=== PATIENT | female | born 1985 | race Caucasian/White ===

== ENCOUNTER → 2017-12-20 | Outpatient (CLI) | payer MEDICAID ==
--- NOTE | 2017-12-20 16:10 | XR ---
EXAMINATION TYPE: XR chest 2V DATE OF EXAM: 12/20/2017 COMPARISON: None HISTORY: 32-year-old female painful cough, other forms of angina pectoris TECHNIQUE: Frontal and lateral views FINDINGS: The cardiomediastinal silhouette, aorta, and pulmonary vasculature are within normal limits. Lungs an d pleural spaces are clear. IMPRESSION: No acute cardiopulmonary process.
== END | disposition home or self-care (01) ==
LOC: RADXRMAIN 15:40
PROVIDERS: ATTEND Family Medicine
DX: I20.8 Other forms of angina pectoris (principal)
CPT/HCPCS: 71046

== ENCOUNTER → 2023-05-31 | Outpatient (CLI) | payer OTHER ==
--- NOTE | 2023-05-31 11:15 | XR ---
EXAMINATION TYPE: XR shoulder complete RT DATE OF EXAM: 05/31/2023 CLINICAL HISTORY: pain TECHNIQUE: Three views of the right shoulder are obtained. COMPARISON: None FINDINGS: There is no acute fracture/dislocation evident. The acromioclavicular and glenohumeral marium int spaces appear within normal limits. The visualized ribs are intact and unremarkable. IMPRESSION: 1. There is no acute fracture or dislocation. ICD 10 NO FRACTURE, INITIAL EVALUATION
== END | disposition home or self-care (01) ==
LOC: RADXRMAIN 10:25
PROVIDERS: ATTEND Emergency Medicine
DX: S46.911A Strain of unspecified muscle, fascia and tendon at shoulder and upper arm level, right arm, initial encounter (principal)

== ENCOUNTER → 2023-06-15 | Outpatient (CLI) | payer OTHER ==
--- NOTE | 2023-06-16 22:20 | MR ---
EXAMINATION TYPE: MR shoulder RT wo con DATE OF EXAM: 06/15/2023 COMPARISON: Right shoulder x-ray May 31, 2023 HISTORY: Rt shoulder pain since April 2023, lifting injury TECHNIQUE: Multiplanar, multisequence imaging of the right shoulder is performed without contrast. FINDINGS: Rotator Cuff: Intact supraspinatus and infraspinatus tendons. Intact subscapularis tendon. Rotator cu ff muscle bulk is preserved. Acromioclavicular Joint: Mild narrowing. No significant spurring. Mild to moderate capsular hypertrop hy. Underlying fat plane is preserved. Glenohumeral Joint: Small joint effusion is favored physiologic. No significant spurring. Labrum: The labrum appears grossly intact given limitation of non-arthrogram study. Biceps Tendon: The long head of biceps is in normal location within bicipital groove. Bone marrow signal: No focal abnormal marrow signal is appreciated. Other: No additional significant abnormality is appreciated. IMPRESSION: No rotator cuff or labral tear is seen.
== END | disposition home or self-care (01) ==
LOC: RADMRIMAIN 12:49
PROVIDERS: ATTEND Emergency Medicine
DX: S46.911D Strain of unspecified muscle, fascia and tendon at shoulder and upper arm level, right arm, subsequent encounter (principal); X58.XXXD Exposure to other specified factors, subsequent encounter

== ENCOUNTER → 2023-10-21 | Day surgery (SDC) | payer OTHER ==
[2023-10-19 11:20] VITALS: BMI 31.3
--- NOTE | 2023-10-20 07:59 | P.HPOR ---
History of Present Illness H&P Date: 10/20/23 Chief Complaint: Right shoulder pain The patient is a 38-year-old [id number] female who presents with right shoulder pain after an injury at work May 2023. She herself transferring the patient. She felt a pop/plan her shoulder. She's had anterior and lateral pain ever since. She's having pain overhead use and at night. She's tried therapy along with an injection and medications with temporary partial relief. Currently she's been working with restrictions. She denies previous problems. Review of Systems As per HPI Past Medical History Past Medical History: Asthma Additional Past Medical History / Comment(s): Hx Childhood Asthma,"outgrew it." History of Any Multi-Drug Resistant Organisms: None Reported Past Surgical History: Bladder Surgery, Section Past Anesthesia/Blood Transfusion Reactions: No Reported Reaction Smoking Status: Current every day smoker - Past Family History Mother Family Medical History: Cancer Medications and Allergies Home Medications Medication Instructions Recorded Confirmed Type Escitalopram Oxalate [Lexapro] 20 mg PO DAILY 10/19/23 10/19/23 History Allergies Allergy/AdvReac Type Severity Reaction Status Date / Time No Known Allergies Allergy Verified 10/19/23 11:06 Physical Examination - Shoulder right Tenderness with palpation: anterior, bicipital groove ROM: forward flexion: 160 degrees ROM: internal rotation: upper lumbar ROM: external rotation: 60 degrees Crepitus with motion: Yes Strength: abduction: 5/5 Strength: external rotation: 5/5 Tests: internal impingement tests: positive, external impingment tests: positive Results Patient is a well-developed well-nourished female approximately 5 foot 7, 205 pounds of endomorphic habitus. HEENT exam is nonfocal, neck is supple. She's tender about the right shoulder anterior subacromial space. Moderate crepitus is noted. Garcia, Neer sign, and speed test are positive. Her distal neurovascular appears intact and the right upper extremity. - Diagnostic results Shoulder MRI: image reviewed (Right shoulder MRI report showed no definite rotator cuff tear.) Assessment and Plan Assessment: Right rotator cuff strain/right shoulder impingement Plan: I talked to the patient at length regarding her condition along with treatment options. At this point she's tried extensive conservative measures without much relief. She opted to proceed with surgery. We will plan to proceed with right shoulder arthroscopy with probable subacromial decompression and possible rotator cuff debridement. Risks and benefits were discussed at length in layman's terms. We will likely perform that as an outpatient procedure.
[~2023-10-21] MED LIST: DEXAMETHASONE SOD PHOSPHATE 4 MG/ML 1 ML VIAL ONE; HYDROmorphone 0.5 MG/0.5 ML SYRINGE IVP PRN; KETOROLAC 15 MG/ML 1 ML VIAL ONE; LIDOCAINE 1% INJ 10MG/ML (20 ML MDV) ONE; MIDAZOLAM 2 MG/2 ML VIAL IV PRN; MIDAZOLAM 2 MG/2 ML VIAL ONE; PROPOFOL 10 MG/ML 20 ML VIAL IV ONE; ROPIVACAINE 5 MG/ML 30 ML VIAL ONE; SCOPOLAMINE 1 MG/72 HR PATCH TRANSDERM ONE; SUCCINYLCHOLINE CHLORIDE 200 MG/10 ML VIAL IV ONE; fentaNYL (PF) 50 MCG/ML 2 ML AMP ONE
[2023-10-21] MEDS: IV FLUID CONTINUATION 1,000 ML IV ONE (10:09)
[2023-10-21] MEDS: LACTATED RINGERS 1,000 ML IV SCH (10:21)
[2023-10-21] MEDS: ONDANSETRON 4 MG/2 ML VIAL IVP ONE (10:21)
[2023-10-21] MEDS: DEXAMETHASONE SOD PHOSPHATE 4 MG/ML 1 ML VIAL IV ONE (10:21)
[2023-10-21] MEDS: MIDAZOLAM 2 MG/2 ML VIAL IVP ONE (10:36)
--- NOTE | 2023-10-21 10:54 | P.ANPRN ---
Procedure Note - Anesthesia - Nerve Block Performed Right Interscalene Single Time Out Performed: Yes Date of Procedure: 10/21/23 Procedure Start Time: 10:35 Procedure Stop Time: 10:40 Location of Patient: PreOp Indication: Acute Post-Operative Pain, Analgesia, Requested by Surgeon Sedation Type: Sedate with meaningful contact maintained Preparation: Sterile Prep Position: Sitting Catheter: None Needle Types: Pajunk Needle Gauge: 21 Ultrasound used to visualize needle placement: Yes Ultrasound used to observe medication spread: Yes Injectate: 0.5% Ropivacaine (see comment for volume) (Ropiv 20ml+decadron 4mg. No nerve stimulation @0.5 MA.) Blood Aspirated: No Pain Paresthesia on Injection Noted: No Resistance on Injection: Normal Image Stored and Saved: Yes Events: Uneventful and Well Tolerated
--- NOTE | 2023-10-21 12:27 | P.OP ---
Date of Procedure: 10/21/23 Preoperative Diagnosis: Right shoulder impingement/rotator cuff tendinitis Postoperative Diagnosis: Same Procedure(s) Performed: Right shoulder arthroscopic subacromial decompression/bursectomy/rotator cuff debridement Anesthesia: ELZBIETA, regional Surgeon: Jurgen Vaughn [facility] Teacher #1: Hayden Vidal Estimated Blood Loss (ml): 10 Pathology: none sent Condition: stable Disposition: PACU Indications for Procedure: The patient is a 38-year-old female who presents with persistent/progressive right shoulder pain after previous injury despite adequate rehabilitation. A discussion of the risks and benefits of operative intervention versus continued conservative measures was made with the patient. She opted to proceed with surgery. Operative risks include infection, neurovascular injury, development of blood clots, possible incomplete resolution of symptoms, possible worsening of symptoms and need for subsequent procedures was discussed. Informed consent was obtained. Operative Findings: As below Description of Procedure: The patient was brought to the operating room, and after induction of general anesthesia was placed in a beachchair position. A preoperative interscalene block was placed for postoperative analgesia. I examined the right shoulder. There was no gross block to passive motion or gross glenohumeral instability. The right upper extremity was prepped and draped in normal fashion. The bony outlines the acromion, distal clavicle, and coracoid process were outlined with a skin marker. The glenohumeral joint was inflated with 50 mL of saline utilizing a spinal needle from posterior approach. A posterior portal was made through a 5 mm skin incision 1 cm medial and inferior to the posterior lateral border time. A blunt trocar was used to easily into the joint. Diagnostic arthroscopy was performed. An anterior portal was made just lateral to the coracoid process entering the joint above the subscapularis tendon. The subscapularis tendon appeared to be intact. Anterior labrum was intact. The inferior recess was inspected. The posterior labrum was intact. The biceps and its anchor appear to be intact. On inspection the rotator cuff, it was intact on the articular surface. The arthroscope was placed into the subacromial space. A lateral portal was made 2 centimeters inferior to the anterior lateral border of the acromion. There was significant bursal thickening which was resected with a motorized shaver. The soft tissue on the undersurface of the acromion was debrided with a motorized shaver and electrocautery clearly defining the anterior medial and lateral borders as well as the distal clavicle. An anterior inferior acromioplasty was performed with a motorized alessandro starting anterolateral, then extending this posteriorly, then extending this medially. I converted to a flat acromion and this was verified in the posterior and lateral viewing portals. The rotator cuff was inspected. There was some fraying of the anterior supraspinatus debrided with a motorized shaver. This did not involve more than 5% of the tendon thickness. The arthroscope was then removed. The portals were closed with simple 3-0 nylon sutures. A sterile dressing was applied in addition to a sling. The patient was then awoken from general anesthesia and transferred to recovery room in good condition. Blood loss was estimated at 10 mL. No complications were incurred. Sponge and needle counts were correct in the case. Hayden TERRELL assisted and the major components of the case to include arm positioning, diagnostic arthroscopy, and decompression.
[2023-10-21 12:34] VITALS: RESP 16; TEMP 97.9
[2023-10-21 13:38] VITALS: BP 103/67
[2023-10-21 13:59] VITALS: PULSE 68
== END | disposition home or self-care (01) ==
LOC: OR 09:28
PROVIDERS: ATTEND Orthopaedic Surgery
DX: M75.101 Unspecified rotator cuff tear or rupture of right shoulder, not specified as traumatic (principal); M75.41 Impingement syndrome of right shoulder; G89.18 Other acute postprocedural pain; J45.909 Unspecified asthma, uncomplicated; F17.200 Nicotine dependence, unspecified, uncomplicated; Z79.899 Other long term (current) drug therapy
CPT/HCPCS: 64415; 81025; 29823; 29826; J2250; J0330; J1100; J0690; J2405; J2001; J3010; J2795; J1885; J2704

== ENCOUNTER → 2024-07-18 | Outpatient (CLI) | payer BC ==
--- NOTE | 2024-07-26 13:42 | MM ---
Reason for Exam: Screening (asymptomatic). Baseline mammogram. Patient History: Menarche at age 12. First Full-Term at age 18. Patient has history of breast feeding. Last menstrual period: 06/23/2024 Risk Values: Meche 5 year model risk: 0.5%. NCI Lifetime model risk: 8.3%. Prior Study Comparison: Patient's first Mammogram. Tissue Density: The breasts are heterogeneously dense, which may obscure small masses. Findings: Analyzed By CAD. There is a lobulated 14 mm nodule approximately 5 cm from the nipple central aspect of the right breast. There is an adjacent smaller 6 mm nodule along the inner margin of the right breast. There is a 7 mm nodule in the upper outer margin breast possibly related to lymph node. Within the upper right breast is also a 12 mm nodule best seen on 3-D imaging. Spot compression of these areas recommended. There are no suspicious calcifications. No prior exam available for comparison. There are benign appearing calcifications. Overall Assessment: Incomplete: need additional imaging evaluation, BI-RAD 0 Management: Diagnostic Mammogram of the right breast. . Patient should continue monthly self-breast exams. A clinical breast exam by your physician is recommended on an annual basis. This exam should not preclude additional follow-up of suspicious palpable abnormalities. Note on Meche scores and lifetime risk: 1. A Meche score greater than 3% is considered moderate risk. If this is the case, consider specialist referral to assess eligibility for a risk reducing agent. 2. If overall lifetime risk for the development of breast cancer is 20% or higher, the patient may qualify for future screening with alternating mammogram and breast MRI. [facility], , 07/19/2024 8:00 AM. Electronically signed and approved by: Delfino Villaseñor M.D. Radiologis
== END | disposition home or self-care (01) ==
LOC: RADMAMWWP 15:13
PROVIDERS: ATTEND Obstetrics & Gynecology Obstetrics
DX: Z12.31 Encounter for screening mammogram for malignant neoplasm of breast (principal); R92.333 Mammographic heterogeneous density, bilateral breasts; R92.1 Mammographic calcification found on diagnostic imaging of breast
CPT/HCPCS: 77063; 77067

== ENCOUNTER → 2024-07-30 | Outpatient (CLI) | payer BC ==
--- NOTE | 2024-07-30 14:52 | MM ---
Reason for Exam: Additional evaluation requested from abnormal screening. Last screening mammogram was performed less than 1 month ago. Patient History: Menarche at age 12. First Full-Term at age 18. Patient has history of breast feeding. Risk Values: Meche 5 year model risk: 0.5%. NCI Lifetime model risk: 8.3%. Prior Study Comparison: 07/18/2024 Bilateral MG 3D screening mammo w/cad, [facility]. Tissue Density: Right: The breasts are heterogeneously dense, which may obscure small masses. Findings: Analyzed By CAD. Persistent nodularity scattered throughout the breast which appears circumscribed or mildly lobulated. These are either low-density to isodense favoring a benign etiology. Largest measuring 1.5 cm. Further ultrasound evaluation is recommended. Overall Assessment: Incomplete: need additional imaging evaluation, BI-RAD 0 Management: Diagnostic Breast Ultrasound of the right breast. Electronically signed and approved by: Elier Silverio M.D. Radiologist
--- NOTE | 2024-07-30 15:18 | USB ---
Reason for Exam: Additional evaluation requested from abnormal screening. Patient History: Menarche at age 12. First Full-Term at age 18. Patient has history of breast feeding. Risk Values: Meche 5 year model risk: 0.5%. NCI Lifetime model risk: 8.3%. Prior Study Comparison: 07/18/2024 Bilateral MG 3D screening mammo w/cad, [facility]. Findings: The whole breast of the right breast, the axilla of the right breast and the retroareolar of the right breast were scanned. A complete US of all four quadrants of the breast common axilla, and retro-areolar region were reviewed. Numerous small cysts and cyst clusters are present throughout the breast, largest measuring 7 mm at the 12:00 position, 6 mm at the 1:00 position, and 1.3 cm at the 9:00 position. A couple nonspecific oval hypoechoic structures are present with through transmission measurin mm at the 4:00 position 3 cm from the nipple and measuring 9 mm at the 11:00 position, 7 cm from the nipple. Debris-filled cysts or other etiology are possibilities. These can be reassessed at follow-up. No axillary adenopathy. Overall Assessment: Probably benign, BI-RAD 3 Management: Diagnostic Mammogram of the right breast in 6 months. Diagnostic Breast Ultrasound of the right breast in 6 months. A clinical breast exam by your physician is recommended on an annual basis and results should be correlated with mammographic findings. This exam should not preclude additional follow-up of suspicious palpable abnormalities. Results were given to the patient verbally at the time of exam. [facility], , 07/30/2024 3:15 PM. Electronically signed and approved by: Elier Silverio M.D. Radiologist
== END | disposition home or self-care (01) ==
LOC: RADMAMWWP 14:21
PROVIDERS: ATTEND Obstetrics & Gynecology Obstetrics
DX: R92.8 Other abnormal and inconclusive findings on diagnostic imaging of breast (principal); R92.331 Mammographic heterogeneous density, right breast; N60.01 Solitary cyst of right breast
CPT/HCPCS: 77061; 77065